=== PATIENT | female | born 1965 | race Asian ===

== ENCOUNTER 2017-05-29 15:40 | Emergency (ER) | payer OTHER ==
[2017-05-29 15:47] VITALS: BP 97/62
--- NOTE | 2017-05-29 17:22 | UC ---
Complaint Female HPI - HPI Summary HPI Summary: PAIN WITH URINATION SINCE YESTERDAY. NO FEVER. NO BACK PAIN. NO ABDOMINAL PAIN. - History Of Current Complaint Chief Complaint: UCGU Stated Complaint: UTI Time Seen by Provider: 05/29/17 15:44 Hx Obtained From: Patient Hx Last Menstrual Period: 08/30/14 Onset/Duration: Gradual Onset, Lasting Days, Still Present Timing: Intermittent Severity Initially: Moderate Severity Currently: Moderate Pain Intensity: 4 Pain Scale Used: 0-10 Numeric Character: Dull, Burning Aggravating Factor(s): Urination - Allergies/Home Medications Allergies/Adverse Reactions: Allergies Allergy/AdvReac Type Severity Reaction Status Date / Time Adhesive Tape Allergy Rash Verified 05/29/17 15:47 Latex Allergy Rash AND Verified 05/29/17 15:47 RED PMH/Surg Hx/FS Hx/Imm Hx Previously Healthy: Yes - Surgical History Surgical History: Yes Surgery Procedure, Year, and Place: BREAST BIOPSY 09/17/14, MASTECTOMY; LEFT 2014 - BREAST IMPLANT -[facility] - LT BREAST - Family History Known Family History: Positive: Renal Disease - FATHER KIDNEY STONES - Social History Occupation: Employed Full-time Lives: With Family Alcohol Use: None Alcohol Amount: WINE Substance Use Type: None Smoking Status (MU): Never Smoked Tobacco Review of Systems Constitutional: Negative Skin: Negative Eyes: Negative ENT: Negative Respiratory: Negative Cardiovascular: Negative Gastrointestinal: Negative Genitourinary: Dysuria, Frequency, Urgency Motor: Negative Neurovascular: Negative Musculoskeletal: Negative Neurological: Negative Psychological: Negative All Other Systems Reviewed And Are Negative: Yes Physical Exam Triage Information Reviewed: Yes Appearance: Well-Appearing, No Pain Distress, Well-Nourished Vital Signs: Initial Vital Signs Temp 99.0 F 05/29/17 15:43 Pulse 88 05/29/17 15:43 Resp 16 05/29/17 15:43 BP 97/62 05/29/17 15:43 Pulse Ox 99 05/29/17 15:43 Vital Signs Reviewed: Yes Eye Exam: Normal ENT Exam: Normal ENT: Positive: Normal ENT inspection, TMs normal Dental Exam: Normal Neck exam: Normal Neck: Positive: Supple, Nontender, No Lymphadenopathy Respiratory Exam: Normal Respiratory: Positive: Chest non-tender, Lungs clear, Normal breath sounds, No respiratory distress, No accessory muscle use Cardiovascular Exam: Normal Cardiovascular: Positive: RRR, No Murmur, Pulses Normal Abdominal Exam: Normal Abdomen Description: Positive: Nontender, No Organomegaly, Soft. Negative: CVA Tenderness (R), CVA Tenderness (L) Musculoskeletal Exam: Normal Musculoskeletal: Positive: Strength Intact, ROM Intact Neurological Exam: Normal Psychological Exam: Normal Skin Exam: Normal Complaint Female Dx - Differential Dx/Diagnosis Differential Diagnosis/HQI/PQRI: Cervicitis, Urinary Tract Infection Provider Diagnoses: URINARY TRACT INFECTION Discharge - Discharge Plan Condition: Stable Disposition: HOME Prescriptions: Phenazopyridine TAB* [Pyridium 100 mg TAB*] 100 mg PO TID PRN #15 tab PRN Reason: Pain Sulfamethox/Trimethoprim DS* [Bactrim DS 800/160 TAB*] 1 tab PO BID #10 tab Patient Education Materials: Urinary Tract Infection in Women (ED) Referrals: Susana Garvin MD [Primary Care Provider] -
== END 2017-05-29 17:01 | disposition home or self-care (01) ==
LOC: UCEAST 15:40
DX: N39.0 Urinary tract infection, site not specified (principal)
CPT/HCPCS: 81003; 87077; 87086; 87186; 99212; G0463

== ENCOUNTER 2019-08-04 08:29 | Emergency (ER) | payer OTHER ==
[2019-08-04 08:55] VITALS: BP 113/75
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
== END 2019-08-04 09:34 | disposition home or self-care (01) ==
LOC: UCEAST 08:29
DX: T28.0XXA Burn of mouth and pharynx, initial encounter (principal); Z91.09 Other allergy status, other than to drugs and biological substances; Z91.040 Latex allergy status; X10.1XXA Contact with hot food, initial encounter; Y93.89 Activity, other specified; Y92.9 Unspecified place or not applicable
CPT/HCPCS: 87651; 99212; G0463